=== PATIENT | female | born 1995 | race African-American/Black ===

== ENCOUNTER 2020-11-30 20:33 | Emergency (ER) | payer MEDICAID ==
[~2020-11-30] VITALS: Ht 165.1 cm; Wt 100.0 kg
[2020-11-30 20:40] VITALS: BP 178/122; TEMP 97.1
[2020-11-30 21:18] LABS: BASO % 0.4 % (0.0-2.0); EOS # 0.2 (0.0-0.7); GRAN # 5.2 (1.4-6.5); GRAN % 57.9 % (42.2-75.2); LYMPH % 33.9 % (20.0-51.0); MEAN CELL VOLUME 73 fl (80.0-100.0); MEAN CORPUSCULAR HEMOGLOBIN 25 pg (27.0-31.0); MEAN CORPUSCULAR HGB CONC 34 g/dl (33.0-37.0); MEAN PLATELET VOLUME 10.3 fl (7.4-10.4); MONO # 0.5 (0.1-0.6); MONO % 5.6 % (1.7-9.3); PLATELET COUNT 388 K/mm3 (130-400); RED BLOOD COUNT 4.87 M/mm3 (4.10-5.30); REDCELL DISTRIBUTION WIDTH-CV 14.4 % (11.5-14.5)
[2020-11-30 21:19] LABS: HEMATOCRIT 35.7 % (37.0-47.0)
[2020-11-30 21:27] LABS: BILIRUBIN,TOTAL 0.3 mg/dL (0.0-1.0); CALCIUM 8.9 mg/dL (8.4-10.2); CREATININE, serum 0.89 (0.52-1.25); POTASSIUM 3.8 mmol/L (3.4-5.0)
[2020-11-30 22:11] LABS: COLLECTION METHOD CLEAN CATCH
[2020-11-30 22:19] LABS: MUCOUS Present /lpf; PH 6 (5-8); URINE APPEARANCE Cloudy; URINE BACTERIA Rare /hpf; URINE BILIRUBIN Negative (NEGATIVE); URINE BLOOD Negative (NEGATIVE); URINE COLOR Yellow; URINE GLUCOSE Negative (NEGATIVE); URINE KETONE Negative (NEGATIVE); URINE LEUKOCYTE ESTERASE Negative (NEGATIVE); URINE NITRATE Negative (NEGATIVE); URINE PROTEIN(semi-quant) 1+ (NEGATIVE); URINE RBC 0-2 /hpf; URINE UROBILINOGEN >=4.0 mg/dL (NEGATIVE)
[2020-11-30] MEDS ORDERED: PEPCID 20MG TAB20 MG PO (22:36)
[2020-11-30 22:45] VITALS: PULSE 98
== END 2020-11-30 22:47 | disposition home or self-care (01) ==
LOC: COL.ER 20:33
PROVIDERS: Emergency Medicine
DX: R10.10 Upper abdominal pain, unspecified (principal); Z88.6 Allergy status to analgesic agent; Z91.011 Allergy to milk products

== ENCOUNTER 2021-02-28 19:47 | Emergency (ER) | payer MEDICAID ==
[~2021-02-28] VITALS: Ht 165.1 cm; Wt 104.5 kg
[~2021-02-28 19:47] MED LIST: PEPCID 20MG TAB20 MG PO
[2021-02-28] MEDS ORDERED: AMOXICILLIN 8751 TAB PO (21:20)
[2021-02-28 21:41] VITALS: BP 136/83; PULSE 84; TEMP 98.9
== END 2021-02-28 21:41 | disposition home or self-care (01) ==
LOC: COL.ER 19:47
DX: S02.5XXA Fracture of tooth (traumatic), initial encounter for closed fracture (principal); K04.7 Periapical abscess without sinus; K21.9 Gastro-esophageal reflux disease without esophagitis; Z88.6 Allergy status to analgesic agent; X58.XXXA Exposure to other specified factors, initial encounter